=== PATIENT | female | born 1985 | race Caucasian/White ===

== ENCOUNTER 2024-12-14 19:09 | Emergency (ER) | payer OTHER, SELFPAY ==
[2024-12-14] MEDS ORDERED: MECLIZINE HCL 12.5 MG TAB ONE (20:12)
--- NOTE | 2024-12-14 20:32 | RAD REPORT ---
Procedure: Chest Single View HISTORY: Chest pain COMPARISON: none FINDINGS: The lungs appear clear of acute infiltrate. No significant pleural effusion noted. The heart is normal size. IMPRESSION: No acute abnormality is displayed.
[2024-12-14 20:42] LABS: Absolute Lymphocytes (CBC) 1.3 K/uL (0.7-4.9); Absolute Monocytes 0.7 K/uL (0.1-1.3); Absolute Neutrophil 6.9 K/uL (1.8-8.0); Basophils % 0.3 % (0-1.3); Eosinophils % 0.1 % (0-4.4); Hematocrit 39.1 % (36.0-45.0); Hemoglobin 13.4 g/dL (12.0-15.0); Lymphocytes % 14.7 % (15.3-44.8); MCH 30.2 pg (27.0-35.0); MCHC 34.3 g/dL (32.0-36.0); MCV 87.9 fL (80-100); MPV 7.4 fL (7.6-11.3); Monocytes % 7.7 % (3.3-12.3); Neutrophils % 77.2 % (41.7-73.7); Nucleated Red Blood Cells % 0.1 % (0-0); Platelets 238 thou/uL (152-406); RBC Red Blood Cell Count 4.45 M/uL (3.86-4.86); Red Cell Distribution Width 13.3 % (12.1-15.2)
[2024-12-14 20:49] LABS: Specific Gravity > 1.030 (1.005-1.030)
[2024-12-14 20:52] LABS: Specific Gravity 1.023 (1.005-1.030); Sqamous Epithelial <5 /HPF (None Seen); Urine Bacteria None Seen /HPF (<20); Urine Bilirubin NEGATIVE (Negative); Urine Blood Negative (Negative); Urine Clarity Clear (Clear); Urine Color Light-Yellow (Yellow); Urine Crystals Unidentified Few /HPF (None Seen); Urine Culture Reflex Order NOT NEEDED; Urine Glucose NEGATIVE (Negative); Urine Ketones NEGATIVE (Negative); Urine Micro Reflex YN NO BILL MICROSCOPIC; Urine Nitrite NEGATIVE (Negative); Urine Protein NEGATIVE (Negative); Urine RBC <5 /HPF (None Seen); Urine Urobilinogen Normal (Normal); Urine WBC <5 /HPF (<5); Urine pH 5.5 (5.0-7.0)
[2024-12-14 20:57] LABS: PT Prothrombin Time 13.1 SECONDS (9.4-12.5); Protime INR 1.25
[2024-12-14 21:03] LABS: ALT/SGPT 25 U/L (13-56); AST/SGOT 16 U/L (15-37); Albumin 3.3 g/dL (3.4-5.0); Albumin/Globulin Ratio 0.8 (1.1-1.8); Alkaline Phosphatase 87 U/L (45-117); Anion Gap 8.1 mEq/L (5.0-15.0); BUN Blood Urea Nitrogen 16 mg/dL (7-18); Bicarbonate 27 mEq/L (21-32); Bilirubin Total 0.5 mg/dL (0.2-1.0); Globulin 3.9 g/dL (2.3-3.5); Glomerular Filtration Rate 75 ml/min (=/>90); Glucose Level 93 mg/dL (74-106); NT PRO-BNP 39 pg/mL (<125); Potassium 4.1 mEq/L (3.5-5.1); Protein, Total 7.2 g/dL (6.4-8.2); Sodium Level 135 mEq/L (136-145)
[2024-12-14 21:04] LABS: Bilirubin Direct < 0.2 mg/dL (0-0.2); Bilirubin Indirect, Calculated 0.3 mg/dL (0.2-0.8); Troponin High Sensitivity < 3.0 pg/mL (<58.9)
[2024-12-14 21:10] LABS: SARS-CoV-2 Antigen CONTROL BLUE LINE VIS/BG OK; SARS-CoV-2 Antigen Rapid Res Negative (Negative)
--- NOTE | 2024-12-14 22:57 | ER ---
Nurse's Notes [facility] Name: Jackie Rai Age: 39 yrs Sex: Female : 1985 Arrival Date: 12/14/2024 Time: 19:09 Bed DX3 Private MD: Diagnosis: Cough;Dizziness and giddiness;Chest pain, unspecified Presentation: 12/14 19:22 Chief complaint: Patient states: I got sick like two weeks ago and have been having bm8 chest congestion, it hurts to take a deep breath in. TodayI got dizzy coming home from work and my right arm is hurting too. Coronavirus screen: Vaccine status: Patient reports being unvaccinated. Ebola Screen: Patient negative for fever greater than or equal to 101.5 degrees Fahrenheit, and additional compatible Ebola Virus Disease symptoms Patient denies exposure to infectious person. Patient denies travel to an Ebola-affected area in the 21 days before illness onset. No symptoms or risks identified at this time. Initial Sepsis Screen: Does the patient meet any 2 criteria? No. Patient's initial sepsis screen is negative. Does the patient have a suspected source of infection? No. Patient's initial sepsis screen is negative. Risk Assessment: Do you want to hurt yourself or someone else? Patient reports no desire to harm self or others. Onset of symptoms was December 14, 2024 at 16:30. 19:22 Method Of Arrival: Ambulatory bm8 19:22 Acuity: DAVE 3 bm8 Triage Assessment: 19:24 General: Appears in no apparent distress. uncomfortable, Behavior is calm, cooperative, bm8 appropriate for age. Pain: Complains of pain in chest and right arm Pain currently is 5 out of 10 on a pain scale. EENT: No deficits noted. No signs and/or symptoms were reported regarding the EENT system. Neuro: Level of Consciousness is awake, alert, obeys commands, Oriented to person, place, time, situation, Appropriate for age Reports dizziness. Cardiovascular: Reports chest pain, from cough for two weeks. Respiratory: Reports cough that is pain with cough Airway is patent Trachea midline Respiratory effort is even, unlabored, Respiratory pattern is regular, symmetrical, Breath sounds are diminished bilaterally. GI: No signs and/or symptoms were reported involving the gastrointestinal system. : No signs and/or symptoms were reported regarding the genitourinary system. Derm: No signs and/or symptoms reported regarding the dermatologic system. Musculoskeletal: Circulation, motion, and sensation intact. Capillary refill < 3 seconds, in bilateral fingers. Range of motion: intact in all extremities, Reports pain in right arm. 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 - Infectious Disease History:: Denies. - Social history:: Smoking status: Patient denies any tobacco usage or history of. Screenin:06 [facility] ED Fall Risk Assessment (Adult) History of falling in the last 3 months, lg3 including since admission No falls in past 3 months (0 pts) Confusion or Disorientation No (0 pts) Intoxicated or Sedated No (0 pts) Impaired Gait No (0 pts) Mobility Assist Device Used No (0 pt) Altered Elimination No (0 pt) Score/Fall Risk Level 0 - 2 = Low Risk Oriented to surroundings, Maintained a safe environment, Educated pt \T\ family on fall prevention, incl call for assistance when getting out of bed, Assessed \T\ reinforced patient's understanding of fall precautions. Abuse screen: Denies threats or abuse. Denies injuries from another. Nutritional screening: No deficits noted. Tuberculosis screening: No symptoms or risk factors identified. Assessment: 23:06 General: Appears in no apparent distress. comfortable, Behavior is calm, cooperative. lg3 Pain: Complains of pain in right arm and chest Pain does not radiate. Pain currently is 3 out of 10 on a pain scale. Pain began 2-3 days ago. Neuro: No deficits noted. Loya Agitation-Sedation Scale (RASS): 0 - Alert and Calm Level of Consciousness is awake, alert, obeys commands, Oriented to person, place, time, situation. Cardiovascular: No deficits noted. Heart tones S1 S2 present Chest pain is described as mild, is aggravated by cough. Respiratory: No deficits noted. Reports pain with cough Airway is patent Respiratory effort is even, unlabored, Respiratory pattern is regular, symmetrical. GI: No deficits noted. No signs and/or symptoms were reported involving the gastrointestinal system. : No signs and/or symptoms were reported regarding the genitourinary system. EENT: No deficits noted. No signs and/or symptoms were reported regarding the EENT system. Derm: No deficits noted. No signs and/or symptoms reported regarding the dermatologic system. Skin is intact, is healthy with good turgor, Skin is dry, Skin is normal, Skin temperature is warm. Musculoskeletal: No deficits noted. No signs and/or symptoms reported regarding the musculoskeletal system. Circulation, motion, and sensation intact. Range of motion: intact in all extremities. Vital Signs: 19:22 BP 143 / 93; Pulse 99; Resp 18; Temp 99.1; Pulse Ox 96% ; Weight 149.69 kg; Height 5 bm8 ft. 9 in. ; Pain 5/10; 23:06 BP 137 / 88; Pulse 81; Resp 16 S; Temp 98.9(O); Pulse Ox 98% on R/A; lg3 19:22 Body Mass Index 48.73 (149.69 kg, 175.26 cm) bm8 19:22 Pain Scale: Adult bm8 ED Course: 19:12 Patient arrived in ED. mr 19:18 Yuri Arvizu PA is PHCP. cp 19:18 Christina Mckeon MD is Attending Physician. cp 19:24 Triage completed. bm8 19:28 Arm band placed on right wrist. bm8 20:24 XRAY Chest (1 view) In Process Unspecified. EDMS 20:33 Basic Metabolic Panel Sent. vk 20:33 LFT's Sent. vk 20:34 Magnesium Sent. vk 20:34 NT PRO-BNP Sent. vk 20:34 PT-INR Sent. vk 20:34 Troponin HS Sent. vk 20:34 RSV Sent. vk 20:34 SARS RAPID Sent. vk 20:34 Influenza Screen (a \T\ B) Sent. vk 20:34 Test, Urine Sent. vk 20:34 Urinalysis W/Microscopic Sent. vk 20:34 Initial lab(s) drawn, by me, sent to lab. Inserted saline lock: 20 gauge in right vk antecubital area, using aseptic technique. Blood collected. Flushed with 10 mL NS. 23:06 Patient has correct armband on for positive identification. Cardiac monitoring not lg3 applicable on this patient. Family accompanied patient. 23:06 No provider procedures requiring assistance completed. IV discontinued, intact, lg3 bleeding controlled, No redness/swelling at site. Pressure dressing applied. Patient maintains SpO2 saturation greater than 95% on room air. Administered Medications: 20:20 Drug: Meclizine PO 25 mg PO once Route: PO; lg3 23:09 Follow up: Response: No adverse reaction; Marked relief of symptoms lg3 Medication: 23:06 VIS not applicable for this client. lg3 Outcome: 22:56 Discharge ordered by MD. cp 23:06 Discharged to home ambulatory, with family, lg3 23:06 Condition: stable 23:06 Discharge instructions given to patient, Instructed on discharge instructions, follow up and referral plans. medication usage, Demonstrated understanding of instructions, follow-up care, medications, Prescriptions given X 4, 23:09 Patient left the ED. lg3 Signatures: Dispatcher [employer] EDMS Barb Bunch, Reg Reg mr Yuri Arvizu, Jaci Willett cp, RN RN lg3 Elizabeth Ac Brad, RN RN bm8
--- NOTE | 2024-12-14 22:57 | EDPHYS ---
Physician Documentation [facility] Name: Jackie Rai Age: 39 yrs Sex: Female : 1985 Arrival Date: 12/14/2024 Time: 19:09 Bed DX3 Private MD: ED Physician Christina Mckeon HPI: 12/14 19:35 This 39 yrs old Female presents to ER via Ambulatory with complaints of Chest Pain, Arm cp Pain, Dizziness. 19:35 The patient or guardian reports chest pain that is located primarily in the anterior cp chest wall, right. 19:35 The pain does not radiate. Associated signs and symptoms: Pertinent positives: cough cp times 2 weeks, right arm pain, dizziness. The chest pain is described as aching. Modifying factors: the symptoms are aggravated by cough, deep breath. 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 - Infectious Disease History:: Denies. - Social history:: Smoking status: Patient denies any tobacco usage or history of. ROS: 19:40 Constitutional: Negative for fever, poor PO intake, cp 19:40 Cardiovascular: Positive for chest pain, Negative for edema, palpitations, cp 19:40 Respiratory: Positive for cough, 19:40 Neuro: Positive for dizziness, Negative for altered mental status, headache, weakness, 19:40 Eyes: Negative for injury, pain, redness, and discharge, cp 19:40 ENT: Negative for drainage from ear(s), ear pain, sore throat, difficulty swallowing, difficulty handling secretions, 19:40 Abdomen/GI: Negative for abdominal pain, vomiting, diarrhea, constipation, 19:40 All other systems are negative, Exam: 19:45 Constitutional: The patient appears in no acute distress, alert, awake, cp non-diaphoretic, non-toxic, well developed, well nourished, obese, 19:45 Head/Face: Normocephalic, atraumatic. cp 19:45 Eyes: Periorbital structures: appear normal, Conjunctiva: normal, no exudate, no injection, Sclera: no appreciated abnormality, Lids and lashes: appear normal, bilaterally, 19:45 ENT: External ear(s): are unremarkable, Ear canal(s): are normal, clear, TM's: dullness, bilaterally, Nose: is normal, Mouth: Lips: moist, Oral mucosa: moist, Posterior pharynx: Airway: no evidence of obstruction, patent, Tonsils: no enlargement, no exudate, erythema, is not appreciated, exudate, is not appreciated, 19:45 Neck: ROM/movement: is normal, is supple, without pain, no range of motions limitations, no meningismus, 19:45 Chest/axilla: Inspection: normal, 19:45 Cardiovascular: Rate: normal, Rhythm: regular, Edema: is not appreciated, JVD: is not appreciated, 19:45 Respiratory: the patient does not display signs of respiratory distress, Respirations: labored breathing, is not present, Breath sounds: decreased breath sounds, are not appreciated, stridor, is not appreciated, wheezing: is not appreciated, 19:45 Abdomen/GI: Inspection: abdomen appears normal, Palpation: abdomen is soft and non-tender, in all quadrants, 19:45 Neuro: Orientation: to person, place \T\ time. Mentation: is normal, Cerebellar function: is grossly normal, Motor: moves all fours, strength is normal, Sensation: is normal, 20:48 ECG was reviewed by the Attending Physician. cp Vital Signs: 19:22 BP 143 / 93; Pulse 99; Resp 18; Temp 99.1; Pulse Ox 96% ; Weight 149.69 kg; Height 5 bm8 ft. 9 in. ; Pain 5/10; 23:06 BP 137 / 88; Pulse 81; Resp 16 S; Temp 98.9(O); Pulse Ox 98% on R/A; lg3 19:22 Body Mass Index 48.73 (149.69 kg, 175.26 cm) bm8 19:22 Pain Scale: Adult bm8 MDM: 19:29 Medical Screening Exam initiated cp 22:55 Data reviewed: vital signs, nurses notes, lab test result(s), EKG, radiologic studies, cp plain films, and as a result, I will discharge patient. 22:55 Differential diagnosis: abnormal EKG, acute myocardial infarction, chest wall pain, cp pleurisy, pneumonia, pneumothorax, pulmonary embolus. I considered the following discharge prescriptions or medication management in the emergency department Medications were administered in the Emergency Department. See MAR. Independent interpretation of the following test(s) in the Emergency Department EKG: See my EKG interpretation above. Care significantly affected by the following chronic conditions: Hypertension, Obesity. Counseling: I had a detailed discussion with the patient and/or guardian regarding the historical points, exam findings, and any diagnostic results supporting the discharge/admit diagnosis, lab results, radiology results, to return to the emergency department if symptoms worsen or persist or if there are any questions or concerns that arise at home. Response to treatment: the patient's symptoms have mildly improved after treatment, and as a result, I will discharge patient. Special discussion: Based on the patient's history, exam, and Dx evaluation, there is no indication for emergent intervention or inpatient Tx. It is understood by the patient/guardian that if the Sx's persist or worsen they need to return immediately for re-evaluation. 12/14 19:31 Order name: Basic Metabolic Panel; Complete Time: 22:15 cp 02/ 22:15 Interpretation: Normal except: NA 135; GFR 75. cp 12/14 19:31 Order name: CBC with Diff; Complete Time: 22:15 cp 02/ 22:16 Interpretation: Normal except: MPV 7.4; VERONIKA% 77.2; LYM% 14.7. cp 12/14 19:31 Order name: LFT's; Complete Time: 22:15 cp 12/14 19:31 Order name: Magnesium; Complete Time: 22:15 cp 02 19:31 Order name: NT PRO-BNP; Complete Time: 22:15 cp / 19:31 Order name: PT-INR; Complete Time: 22:15 cp 12/14 19:31 Order name: Troponin HS; Complete Time: 22:15 cp 02/ 19:31 Order name: Urinalysis W/Microscopic; Complete Time: 22:15 cp 02 19:31 Order name: Test, Urine; Complete Time: 22:15 cp 12/14 19:31 Order name: Influenza Screen (a \T\ B); Complete Time: 22:15 cp 12/14 19:31 Order name: SARS RAPID; Complete Time: 22:15 cp 12/14 19:31 Order name: RSV; Complete Time: 22:15 cp 12/14 19:31 Order name: XRAY Chest (1 view); Complete Time: 22:15 cp 12/14 19:31 Order name: EKG - Nurse/Tech; Complete Time: 20:53 cp 12/14 19:31 Order name: IV Saline Lock; Complete Time: 20:33 cp 12/14 19:31 Order name: Labs collected and sent; Complete Time: 20:33 cp 12/14 19:31 Order name: O2 Per Protocol; Complete Time: 20:13 cp 12/14 19:31 Order name: O2 Sat Monitoring; Complete Time: 20:13 cp EC:48 Rate is 95 beats/min. Rhythm is regular. MD interval is normal. QRS interval is normal. cp QT interval is normal. T waves are Inverted in lead aVL. Interpreted by me. Reviewed by me. Administered Medications: 20:20 Drug: Meclizine PO 25 mg PO once Route: PO; lg3 23:09 Follow up: Response: No adverse reaction; Marked relief of symptoms lg3 Disposition Summary: 12/14/24 22:56 Discharge Ordered Notes: Location: Home cp Problem: new cp Symptoms: have improved cp Condition: Stable cp Diagnosis - Cough cp - Dizziness and giddiness cp - Chest pain, unspecified cp Followup: cp - With: Private Physician - When: 2 - 3 days - Reason: Worsening of condition Discharge Instructions: - Discharge Summary Sheet cp - Nonspecific Chest Pain, Adult cp - Dizziness cp - Aspirin and Your Heart cp - Cough, Adult cp - Form - Return To Work cp Forms: - Medication Reconciliation Form cp - Antibiotic Education cp - Prescription Opioid Use cp - Patient Portal Instructions cp - Leadership Thank You Letter cp - Work release form [email or web address] Prescriptions: - Bromfed DM 2-30-10 mg/5 mL Oral syrup - administer 10 milliliter ORAL route every 6 hours as needed for cough; 240 cp milliliter; Refills: 0, Product Selection Permitted - Ibuprofen 800 mg Oral Tablet - take 1 tablet ORAL route every 8 hours As needed take with food; 30 tablet; cp Refills: 0, Product Selection Permitted - Meclizine 25 mg Oral Tablet - take 1 tablet ORAL route every 8 hours As needed; 30 tablet; Refills: 0, cp Product Selection Permitted - Zithromax Z-Flakito 250 mg Oral Tablet - take 1 tablet ORAL route as directed for 5 days Day 1 - take two (2) tablets cp one time. Day 2, 3, 4 , 5 take one (1) tablet once daily.; 6 tablet; Refills: 0, Product Selection Permitted Signatures: Dispatcher [employer] EDMS Yuri Arvizu PA PA cp Able, Lacie RN RN lg3 Markie Wakefield RN RN bm8 Corrections: (The following items were deleted from the chart) 19:31 19:31 BASIC METABOLIC PANEL+C.LAB.BRZ ordered. EDMS EDMS 19:31 19:31 CBC+H.LAB.BRZ ordered. EDMS EDMS 19:31 19:31 HEPATIC FUNCTION+C.LAB.BRZ ordered. EDMS EDMS 19:31 19:31 MAGNESIUM+C.LAB.BRZ ordered. EDMS EDMS 19:31 19:31 PROBNP+C.LAB.BRZ ordered. EDMS EDMS 19:31 19:31 PROTIME (+INR)+COAG.LAB.BRZ ordered. EDMS EDMS 19:31 19:31 Troponin High Sensitivity+C.LAB.BRZ ordered. EDMS EDMS 19:31 19:31 Urinalysis W/Microscopic+U.LAB.BRZ ordered. EDMS EDMS 19:31 19:31 Test, Urine+UC.LAB.BRZ ordered. EDMS EDMS 19:31 19:31 Influenza Screen (A \T\ B)+BA.LAB.BRZ ordered. EDMS EDMS 19:31 19:31 SARS-COV-2 Antigen Rapid+I.LAB.BRZ ordered. EDMS EDMS 19:31 19:31 Respiratory Syncytial Virus Ag+BA.LAB.BRZ ordered. EDMS EDMS 19:31 19:31 Chest Single View+RAD.RAD.BRZ ordered. EDMS EDMS
[2024-12-15 01:50] VITALS: BP 137/88; TEMP 98.9; O2SAT 98
== END 2024-12-14 23:09 | disposition home or self-care (01) ==
LOC: ER 19:09
DX: R07.89 Other chest pain (principal); R05.9 Cough, unspecified; R42 Dizziness and giddiness; Z11.52 Encounter for screening for COVID-19
CPT/HCPCS: 36415; 71045; 80048; 80076; 81001; 81025; 83735; 83880; 84484; 85025; 85610; 87804; 87807; 87811; 93005; 99284; J8597